=== PATIENT | female | born 1995 | race Caucasian/White ===

== ENCOUNTER 2018-06-16 15:39 | Emergency (ER) | payer MEDICAID ==
[~2018-06-16] VITALS: Ht 170.2 cm; Wt 116.6 kg
[2018-06-16 16:57] LABS: URINE HCG NEGATIVE (NEG)
[2018-06-16 17:42] VITALS: BP 131/93
== END 2018-06-16 17:43 | disposition home or self-care (01) ==
LOC: ER 15:39
DX: Z32.02 Encounter for pregnancy test, result negative (principal); M54.9 Dorsalgia, unspecified
CPT/HCPCS: 81025; 99283